=== PATIENT | female | born 1995 | race Caucasian/White ===

== ENCOUNTER 2020-09-22 13:42 | Emergency (ER) | payer OTHER ==
[~2020-09-22] VITALS: Ht 149.9 cm; Wt 67.1 kg
[~2020-09-22 13:42] MED LIST: PEPCID20 MG PO
== END 2020-09-22 18:02 | disposition home or self-care (01) ==
LOC: ER 13:42
DX: R10.2 Pelvic and perineal pain (principal)

== ENCOUNTER 2020-10-17 18:07 | Emergency (ER) | payer OTHER ==
[~2020-10-17] VITALS: Ht 149.9 cm; Wt 71.7 kg
[2020-10-17] MEDS ORDERED: DICLOFENAC POTA50 MG PO (19:30)
[2020-10-17] MEDS ORDERED: KETO10TA2 PO (19:30)
[2020-10-17] MEDS ORDERED: KETO10TA2 (19:31)
== END 2020-10-17 19:35 | disposition home or self-care (01) ==
LOC: ER 18:07
DX: R22.2 Localized swelling, mass and lump, trunk (principal)

== ENCOUNTER 2021-07-25 18:31 | Emergency (ER) | payer OTHER ==
[~2021-07-25] VITALS: Ht 152.4 cm; Wt 77.1 kg
[~2021-07-25 18:31] MED LIST changes: +DICLOFENAC POTA50 MG PO; +KETO10TA2; +KETO10TA2 PO
== END 2021-07-25 21:20 | disposition home or self-care (01) ==
LOC: ER 18:31
DX: R10.2 Pelvic and perineal pain (principal)